=== PATIENT | female | born 1985 | race African-American/Black ===

== ENCOUNTER 2023-04-06 15:04 | Emergency (ER) | payer MEDICAID, OTHER ==
[~2023-04-06] VITALS: Ht 170.2 cm; Wt 60.0 kg
[~2023-04-06 15:04] MED LIST: KEPP500 PO
[2023-04-06 15:12] VITALS: O2SAT 99
[2023-04-06] MEDS ORDERED: LEVETIRACETAM 1000MG PREMIX 100 ML IV ONE (15:15)
[2023-04-06 16:05] LABS: BASOPHILS % 0.7 % (0.0-2.0); EOSINOPHILS % 0.3 % (0.0-5.0); HEMATOCRIT. 42.1 % (36.0-48.0); LYMPHOCYTES % 24.8 % (20.0-50.0); MEAN CORPUSCULAR HEMOGLOBIN 28.3 pg (28.0-32.0); MEAN CORPUSCULAR VOLUME 85.1 fL (81.0-99.0); MONOCYTES % 7.6 % (2.0-8.0); NEUTROPHILS % 66.6 % (40.0-76.0); PLATELET 333 x1000/uL (130-400); RED BLOOD CELL COUNT 4.95 mill/uL (4.2-5.4); RED CELL DISTRIBUTION WIDTH 14.2 % (11.6-14.6)
[2023-04-06 16:18] LABS: CHLORIDE 109 mEq/L (98-107)
[2023-04-06 16:25] LABS: ETHANOL BLOOD < 10 mg/dL (-10)
[2023-04-06 17:17] LABS: CLARITY URINE TURBID (CLEAR); COLOR URINE YELLOW (YELLOW); KETONES URINE TRACE (NEGATIVE); LEUKOCYTE ESTERASE URINE NEGATIVE (NEGATIVE); NITRITE URINE NEGATIVE (NEGATIVE); OCCULT BLOOD URINE NEGATIVE (NEGATIVE); PH URINE 5.5 (4.5-8.0); PROTEIN URINE TRACE (NEGATIVE); SPECIFIC GRAVITY URINE 1.031 (1.005-1.030); UROBILINOGEN URINE 0.2 E.U./dL (0.2-1.0)
[2023-04-06 17:28] VITALS: BP 124/75; PULSE 91; RESP 20; TEMP 98.7
== END 2023-04-06 17:30 | disposition home or self-care (01) ==
LOC: ER 15:04
DX: R56.9 Unspecified convulsions (principal)
CPT/HCPCS: 80053; 81003; 80320; 85025; 36415; 99283; J1953; G0480

== ENCOUNTER 2023-05-04 09:42 | Emergency (ER) | payer MEDICAID ==
[~2023-05-04] VITALS: Ht 162.6 cm; Wt 60.0 kg
[2023-05-04 09:46] VITALS: TEMP 98.5; O2SAT 99
[2023-05-04] MEDS ORDERED: ACETAMINOPHEN 325MG TABLET PO ONE (10:00)
[2023-05-04] MEDS ORDERED: LEVETIRACETAM 1000MG PREMIX 100 ML IV ONE (10:00)
[2023-05-04 10:09] LABS: BASOPHILS % 0.3 % (0.0-2.0); EOSINOPHILS % 0.1 % (0.0-5.0); HEMATOCRIT. 43.6 % (36.0-48.0); HEMOGLOBIN. 14.1 g/dL (12.0-16.0); LYMPHOCYTES % 12.9 % (20.0-50.0); MEAN CORPUSCULAR HGB CONC 32.4 g/dL (31.0-37.0); MEAN CORPUSCULAR VOLUME 86.5 fL (81.0-99.0); MEAN PLATELET VOLUME 8.1 fl (7.4-10.4); MONOCYTES % 5.9 % (2.0-8.0); NEUTROPHILS % 80.8 % (40.0-76.0); PLATELET 317 x1000/uL (130-400); RED BLOOD CELL COUNT 5.04 mill/uL (4.2-5.4); RED CELL DISTRIBUTION WIDTH 14.8 % (11.6-14.6); WHITE BLOOD COUNT 8.8 x1000/uL (4.5-11.0)
[2023-05-04 10:19] VITALS: BP 119/84; PULSE 86; RESP 17
[2023-05-04 10:19] LABS: CHLORIDE 110 mEq/L (98-107); INDEX HEMOLYSI 1 (1-3); INDEX ICTERIC 1 (1-4); INDEX LIPEMIC 1 (1-3); POTASSIUM 3.6 mEq/L (3.5-5.1); SODIUM 141 mEq/L (136-145)
[2023-05-04 10:30] LABS: ALANINE AMINOTRANSFERASE 17 IU/L (13-61); ALBUMIN 4.3 g/dL (3.4-5.0); ASPARTATE AMINOTRANSFERASE 13 IU/L (15-37); BILIRUBIN TOTAL 0.6 mg/dL (0.1-1.0); CALCIUM 9.7 mg/dL (8.5-10.1); CARBON DIOXIDE 25 mEq/L (21-32); CREATININE 0.8 mg/dL (0.6-1.3); ETHANOL BLOOD < 10 mg/dL (-10); GLUCOSE 119 mg/dL (70-105); UREA NITROGEN BLOOD 12 mg/dL (7-21)
[2023-05-04 12:58] LABS: CLARITY URINE CLOUDY (CLEAR); COLOR URINE YELLOW (YELLOW); GLUCOSE URINE NEGATIVE (NEGATIVE); KETONES URINE TRACE (NEGATIVE); LEUKOCYTE ESTERASE URINE NEGATIVE (NEGATIVE); NITRITE URINE NEGATIVE (NEGATIVE); OCCULT BLOOD URINE TRACE (NEGATIVE); PROTEIN URINE 1+ (NEGATIVE); SPECIFIC GRAVITY URINE 1.025 (1.005-1.030)
[2023-05-04 13:01] LABS: BACTERIA URINE 1+; YEAST URINE NONE SEEN
[2023-05-04 13:31] LABS: CALCIUM OXALATE CRYSTALS URINE 2+ /lpf
[2023-05-04 13:32] LABS: RBC URINE 0-2 /hpf (0-2); SQUAMOUS EPITHELIAL CELL URINE 1+ /lpf (RARE/1+); WBC URINE 0-2 /hpf (0-2)
[2023-05-04 14:02] LABS: *AMPHETAMINES SCREEN URINE NEGATIVE (NEGATIVE); *BARBITURATES SCREEN URINE NEGATIVE (NEGATIVE); *BENZODIAZEPINES SCREEN URINE NEGATIVE (NEGATIVE); *COCAINE SCREEN URINE NEGATIVE (NEGATIVE); ECSTASY MDMA SCREEN URINE NEGATIVE (NEGATIVE); METHADONE URINE SCREEN NEGATIVE (NEGATIVE); OPIATES URINE SCREEN NEGATIVE (NEGATIVE); PHENCYCLIDINE URINE SCREEN NEGATIVE (NEGATIVE)
[2023-05-04 14:05] LABS: CANNABINOID URINE SCREEN PRESUMTIVE POSITIVE (NEGATIVE)
== END 2023-05-04 12:32 | disposition home or self-care (01) ==
LOC: ER 09:52
DX: R56.9 Unspecified convulsions (principal)
CPT/HCPCS: 80053; 80305; 81003; 80320; 85025; 36415; 96365; 99284; J1953; Z7610; G0480

== ENCOUNTER 2023-12-07 17:10 | Emergency (ER) | payer MEDICAID, OTHER ==
[~2023-12-07] VITALS: Ht 162.6 cm; Wt 59.0 kg
[2023-12-07 17:22] VITALS: O2SAT 97
[2023-12-07 17:42] VITALS: TEMP 98.1
[2023-12-07 20:34] VITALS: BP 132/88; PULSE 76; RESP 16
== END 2023-12-07 20:34 | disposition home or self-care (01) ==
LOC: ER 17:10
DX: R56.9 Unspecified convulsions (principal)
CPT/HCPCS: 99283; Z7610

== ENCOUNTER 2024-01-03 10:52 | Emergency (ER) | payer MEDICAID, MEDICARE, OTHER ==
[~2024-01-03] VITALS: Ht 165.1 cm; Wt 60.0 kg
[2024-01-03 10:53] VITALS: O2SAT 99
[2024-01-03 11:20] VITALS: BP 122/92; PULSE 95; RESP 15; TEMP 98.3
[2024-01-03] MEDS ORDERED: SODIUM CHLORIDE 0.9% 1,000 ML IV ONE (11:45)
[2024-01-03] MEDS ORDERED: LEVETIRACETAM 1000MG PREMIX 100 ML IV ONE (11:45)
== END 2024-01-03 11:39 | disposition left against medical advice (07) ==
LOC: ER 10:52
DX: R56.9 Unspecified convulsions (principal); Z53.21 Procedure and treatment not carried out due to patient leaving prior to being seen by health care provider
CPT/HCPCS: 99281; Z7610 ×2; J7030

== ENCOUNTER 2024-01-14 20:42 | Emergency (ER) | payer MEDICARE ==
[~2024-01-14] VITALS: Ht 162.6 cm; Wt 70.0 kg
[2024-01-14 20:48] VITALS: O2SAT 98
[2024-01-14] MEDS: LEVETIRACETAM 500MG PREMIX 100 ML IV ONE (22:18)
[2024-01-14 22:49] VITALS: BP 106/74; PULSE 100; RESP 19; TEMP 98.2
== END 2024-01-14 23:31 | disposition home or self-care (01) ==
LOC: ER 20:42
DX: G40.909 Epilepsy, unspecified, not intractable, without status epilepticus (principal); F17.200 Nicotine dependence, unspecified, uncomplicated; Z59.01 Sheltered homelessness
CPT/HCPCS: 99284; 96365; 82962; J1953